=== PATIENT | female | born 1945 | race Caucasian/White ===

== ENCOUNTER 2024-05-25 08:18 | Outpatient (REF) | payer MEDICARE, SELFPAY ==
--- NOTE | ~2024-05-25 | XR_ITS ---
EXAMINATION: XR BILATERAL KNEES CLINICAL INFORMATION: Reason for Exam M25.562 - Pain in left knee COMPARISON: None TECHNIQUE: 3 views of the bilateral knees FINDINGS: RIGHT KNEE: No acute fracture or dislocation. Mild osteoarthritis with small patellofemoral compartment osteophytes. No joint effusion. Soft tissues are unremarkable. LEFT KNEE: No acute fracture or dislocation. Mild osteoarthritis with small patellofemoral compartment osteophytes. No joint effusion. Soft tissues are unremarkable. XR/XR knee LT 3V IMPRESSION: * No acute osseous abnormality. * Mild degenerative changes of the knees.
--- NOTE | ~2024-05-25 | XR_ITS ---
EXAMINATION: XR BILATERAL KNEES CLINICAL INFORMATION: Reason for Exam M25.562 - Pain in left knee COMPARISON: None TECHNIQUE: 3 views of the bilateral knees FINDINGS: RIGHT KNEE: No acute fracture or dislocation. Mild osteoarthritis with small patellofemoral compartment osteophytes. No joint effusion. Soft tissues are unremarkable. LEFT KNEE: No acute fracture or dislocation. Mild osteoarthritis with small patellofemoral compartment osteophytes. No joint effusion. Soft tissues are unremarkable. XR/XR knee RT 3V IMPRESSION: * No acute osseous abnormality. * Mild degenerative changes of the knees.
== END 2024-05-25 08:19 | disposition home or self-care (01) ==
LOC: HO.HOSX 08:18
PROVIDERS: Visit Provider Orthopaedic Surgery
DX: M70.52 Other bursitis of knee, left knee (principal); M25.561 Pain in right knee
CPT/HCPCS: 20610; 73562; 99202; J0665; J1100

== ENCOUNTER 2024-05-25 08:18 | Outpatient (AMB) | payer MEDICARE, BC, SELFPAY ==
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
[2024-05-25 08:28] VITALS: BMI 25.8
== END 2024-05-25 09:31 | disposition home or self-care (01) ==
PROVIDERS: Visit Provider Orthopaedic Surgery
DX: M70.52 Other bursitis of knee, left knee (principal)
CPT/HCPCS: 20610; 99203